=== PATIENT | female | born 1955 | race Caucasian/White ===

== ENCOUNTER → 2017-10-20 | Outpatient (CLI) | payer BC ==
[~2017-10-20] MED LIST: CALC-39 PO; CHOL500045 PO; CYAN1TAB29 PO; LACT1CAP35 PO; MULT-658 PO; UBID100C41 PO; Vitamin d PO
[2017-10-20 16:27] LABS: BASOPHILS # (AUTO) 0.04 x10^3/uL (0-0.1); BASOPHILS % (AUTO) 0 % (0-1); EOSINOPHILS # (AUTO) 0.28 x10^3/uL (0-0.4); EOSINOPHILS % (AUTO) 3 % (1-7); LYMPHOCYTES # (AUTO) 3.26 x10^3/uL (1-3.4); LYMPHOCYTES % (AUTO) 36 % (22-44); MD NO; MEAN CORPUSCULAR HGB CONC 34.2 g/dL (32.4-35.8); MEAN CORPUSCULAR VOLUME 96.3 fL (80-100); MEAN PLATELET VOLUME 7.9 fL (7.4-10.4); MONOCYTES # (AUTO) 0.69 x10^3/uL (0.2-0.8); MONOCYTES % (AUTO) 8 % (2-9); NEUTROPHILS # (AUTO) 4.91 x10^3/uL (1.8-6.8); NEUTROPHILS % (AUTO) 54 % (42-75); PLATELET COUNT 225 x10^3/uL (130-400); RED BLOOD COUNT 4.78 x10^6/uL (3.82-5.3); RED CELL DISTRIBUTION WIDTH 12.3 % (9.6-15.2)
[2017-10-20 16:39] LABS: ANION GAP 7 mmol/L (5-15); CALCIUM 9.3 mg/dL (8.5-10.1); CHLORIDE 105 mmol/L (98-107); CREATININE 0.89 mg/dL (0.55-1.02)
== END | disposition home or self-care (01) ==
LOC: STAR 15:33
PROVIDERS: ATTEND Obstetrics & Gynecology
DX: Z01.818 Encounter for other preprocedural examination (principal); N87.0 Mild cervical dysplasia; N95.0 Postmenopausal bleeding
CPT/HCPCS: 36415; 80048; 85025; 93005

== ENCOUNTER 2017-10-28 09:52 | Day surgery (SDC) | payer BC ==
[~2017-10-28] VITALS: Ht 172.7 cm; Wt 104.3 kg
[2017-10-28] MEDS ORDERED: LACTATED RINGERS 1,000 ML IV SCH (10:18)
[2017-10-28 10:25] VITALS: BP 133/86
[2017-10-28] MEDS ORDERED: FENTANYL PF 250 MCG/5ML ONE (11:13)
[2017-10-28] MEDS ORDERED: MIDAZOLAM 1 MG/ML, 2ML ONE (11:13)
[2017-10-28] MEDS ORDERED: LIDOCAINE GEL 2%, 5ML ONE (11:18)
[2017-10-28] MEDS ORDERED: SUCCINYLCHOLINE 20 MG/ML, 10ML ONE (11:19)
[2017-10-28] MEDS ORDERED: PROPOFOL 10 MG/ML, 20ML ONE (11:19)
[2017-10-28] MEDS ORDERED: ROCURONIUM 10MG/ML,5ML ONE (11:19)
[2017-10-28] MEDS ORDERED: DEXAMETHASONE 4 MG/ML, 1ML ONE (11:19)
[2017-10-28] MEDS ORDERED: ONDANSETRON ODT 8 MG PO ONE (11:30)
[2017-10-28] MEDS ORDERED: SCOPOLAMINE PATCH, 1.5MG PATCH.TD72 TD ONE (11:30)
[2017-10-28] MEDS ORDERED: ACETAMINOPHEN 500 MG TABLET PO ONE (11:30)
[2017-10-28] MEDS ORDERED: BUPIVACAINE/PF-EPI 0.25% 1:200K ONE (11:52)
[2017-10-28] MEDS ORDERED: FLUORESCEIN SODIUM 500 MG/5 ML ONE (11:52)
[2017-10-28] MEDS ORDERED: KETOROLAC 30 MG/1 ML ONE (12:00)
[2017-10-28] MEDS ORDERED: CEFAZOLIN 1,000 MG ONE (12:00)
[2017-10-28] MEDS ORDERED: ALBUTEROL HFA 90 MCG/SPRAY ONE (12:10)
[2017-10-28] MEDS ORDERED: LORazepam 2 MG/ML, 1ML IVPush PRN (13:00)
[2017-10-28] MEDS ORDERED: ALBUTEROL SULFATE 2.5 MG/3 ML NPPB PRN (13:00)
[2017-10-28] MEDS ORDERED: EPHEDRINE 50 MG/ML, 1ML IVPush PRN (13:00)
[2017-10-28] MEDS ORDERED: MEPERIDINE/PF 25MG/0.5ML IVPush PRN (13:00)
[2017-10-28] MEDS ORDERED: ONDANSETRON 2MG/ML, 2ML IV PRN (13:00)
[2017-10-28] MEDS ORDERED: LABETALOL 5MG/ML, 20ML IV PRN (13:00)
[2017-10-28] MEDS ORDERED: MIDAZOLAM 1 MG/ML, 2ML IV PRN (13:00)
[2017-10-28] MEDS ORDERED: OXYcodone 5 MG/5 ML ORAL.SOL UDC PO PRN (13:00)
[2017-10-28] MEDS ORDERED: HYDROmorphone 1 MG/ML, 1ML IV PRN (13:00)
[2017-10-28] MEDS ORDERED: PROMETHAZINE 12.5 MG SUPP PR PRN (13:00)
[2017-10-28] MEDS ORDERED: ONDANSETRON ODT 8 MG PO PRN (13:00)
[2017-10-28] MEDS ORDERED: MORPHINE SULFATE 4 MG/ML, 1ML IVPush PRN (13:00)
[2017-10-28] MEDS ORDERED: hydrALAzine 20 MG/ML, 1ML IV PRN (13:00)
[2017-10-28] MEDS ORDERED: PROMETHAZINE 25 MG/ML, 1ML IV PRN (13:00)
[2017-10-28] MEDS ORDERED: GLYCOPYRROLATE 0.4 MG/2 ML, 2ML ONE (13:41)
[2017-10-28] MEDS ORDERED: NEOSTIGMINE 1 MG/ML, 10ML ONE (13:41)
[2017-10-28] MEDS ORDERED: FENTANYL PF 100 MCG/2ML ONE (14:14)
[2017-10-28] MEDS ORDERED: OXYcodone 5 MG/5 ML ORAL.SOL UDC ONE (14:14)
[2017-10-28] MEDS: FENTANYL PF 100 MCG/2ML IV PRN ×2 (14:18→14:24)
== END 2017-10-28 19:05 | disposition home or self-care (01) ==
LOC: OUT 09:52
PROVIDERS: ATTEND Obstetrics & Gynecology
DX: N87.0 Mild cervical dysplasia (principal); N73.6 Female pelvic peritoneal adhesions (postinfective); N83.312 Acquired atrophy of left ovary; N83.311 Acquired atrophy of right ovary; N80.0 Endometriosis of uterus; N88.8 Other specified noninflammatory disorders of cervix uteri
CPT/HCPCS: 58571; 88307; J0330; J0690; J1100; J1885; J2250; J2704; J2710; J3010; J7120; Q0162